=== PATIENT | female | born 1955 | race Asian ===

== ENCOUNTER → 2020-10-30 | Outpatient (CLI) | payer OTHER ==
[~2020-10-30] MED LIST: COVID-19 VACC, MRNA(MODERNA)/PF 100 MCG/0.5 ML VIAL IM ONE
== END ==
LOC: VACCPMC 20:00
DX: Z23 Encounter for immunization (principal); Z20.822 Contact with and (suspected) exposure to COVID-19

== ENCOUNTER → 2020-11-29 | Outpatient (CLI) | payer OTHER | END | DRG 951 | LOC: VACCPMC 10:10 | DX: Z23 Encounter for immunization (principal); Z20.822 Contact with and (suspected) exposure to COVID-19 | CPT/HCPCS: 0012A; 91301 ==

== ENCOUNTER 2021-04-24 15:03 | Outpatient (RCR) | payer BC | END 2021-04-26 | LOC: PT 15:03 | PROVIDERS: ATTEND Psychiatry & Neurology Clinical Neurophysiology | DX: M50.10 Cervical disc disorder with radiculopathy, unspecified cervical region (principal); M54.5 Low back pain ==

== ENCOUNTER 2021-05-18 15:00 | Outpatient (RCR) | payer BC | END 2021-05-27 | LOC: PT 15:00 | PROVIDERS: ATTEND Psychiatry & Neurology Clinical Neurophysiology | DX: M50.10 Cervical disc disorder with radiculopathy, unspecified cervical region (principal); M54.5 Low back pain ==

== ENCOUNTER 2021-06-26 15:00 | Outpatient (RCR) | payer BC | END 2021-06-27 | LOC: PT 15:00 | PROVIDERS: ATTEND Psychiatry & Neurology Clinical Neurophysiology | DX: M50.10 Cervical disc disorder with radiculopathy, unspecified cervical region (principal); M54.5 Low back pain | CPT/HCPCS: 97010; 97012 ×3; 97110 ×8; 97139 ×2; 97140 ×5; G0283 ×2 ==

== ENCOUNTER → 2021-07-27 | Outpatient (RCR) | payer BC | LOC: PT 07-06 15:03 | PROVIDERS: ATTEND Psychiatry & Neurology Clinical Neurophysiology | DX: M50.10 Cervical disc disorder with radiculopathy, unspecified cervical region (principal); M54.5 Low back pain | CPT/HCPCS: 97139 ==

== ENCOUNTER 2021-08-03 15:08 | Outpatient (RCR) | payer BC | END 2021-08-27 | LOC: PT 15:08 | PROVIDERS: ATTEND Psychiatry & Neurology Clinical Neurophysiology | DX: M50.10 Cervical disc disorder with radiculopathy, unspecified cervical region (principal); M54.50 Low back pain, unspecified ==

== ENCOUNTER → 2024-12-22 | Outpatient (REF) | payer MEDICARE ==
[~2024-12-22] MED LIST changes: +CALCIUM 500+D1 EACH PEG; -COVID-19 VACC, MRNA(MODERNA)/PF 100 MCG/0.5 ML VIAL IM ONE; +NEXIUM40 MG PO
== END ==
LOC: MAMMO 13:16
PROVIDERS: ATTEND Internal Medicine
DX: Z12.31 Encounter for screening mammogram for malignant neoplasm of breast (principal); M85.88 Other specified disorders of bone density and structure, other site
CPT/HCPCS: 77067; 77080